=== PATIENT | male | born 1990 | race Two or more races ===

== ENCOUNTER 2025-01-21 20:37 | Emergency (ER) | payer OTHER ==
[~2025-01-21] VITALS: Ht 165.1 cm; Wt 68.0 kg
[2025-01-21] MEDS ORDERED: CRESTOR40 MG (20:44)
[2025-01-21 20:45] VITALS: O2SAT 99
[2025-01-21] MEDS ORDERED: NAPHAZOLINE HCL/PHENIRAMINE 20 DR/ML DROPS OP STA (22:19)
[2025-01-21] MEDS ORDERED: ENALAPRILAT DIHYDRATE 2.5 MG/2 ML VIAL IV STA (22:19)
[2025-01-21] MEDS ORDERED: ENALAPRILAT DIHYDRATE 1.25 MG/ML VIAL IV ONE (22:24)
[2025-01-21 23:32] LABS: BASO % 0.4 % (0.1-1.2); EOS # 0.26 (0.04-0.54); EOS % 3.8 % (0.7-7.0); LYMPH # 2.61 (1.18-3.74); LYMPH % 38.3 % (19.3-53.1); MEAN PLATELET VOLUME 9.70 fl (9.4-12.4); MONO # 0.64 (0.24-0.82); MONO % 9.4 % (4.7-12.5); NEUT # 3.24 (1.56-6.13); NEUT % 47.7 % (34.0-71.1); RED CELL DISTRIBUTION WIDTH 11.5 % (11.6-14.4)
[2025-01-21] MEDS ORDERED: CLONIDINE HCL 0.1 MG TABLET PO STA (23:46)
[2025-01-21 23:59] LABS: ALT/SGPT 79.0 U/L (12-78); AST/SGOT 44.0 U/L (15-37); BILIRUBIN TOTAL 0.67 mg/dL (0.3-1.2); BUN CREA RATIO 13.0 (7.0-25.0); CREATININE SERUM 0.93 mg/dL (0.70-1.30); GFR 93.01; GLOBULINA 3.9 G/DL (2.4-3.5); GLUCOSE FASTING 95.0 mg/dL (65-100); OSMOLALITY SERUM 286.0 MOSM/KG (275-295)
[2025-01-22] MEDS ORDERED: KETOROLAC TROMETHAMINE 10 MG TABLET PO ONE ×2 (01:09→01:11)
[2025-01-22] MEDS ORDERED: KETOROLAC TROMETHAMINE 10 MG TABLET PO STA (01:12)
[2025-01-22] MEDS ORDERED: NIFEDIPINE 10 MG CAPSULE PO ONE (02:19)
[2025-01-22] MEDS ORDERED: NIFEDIPINE 10 MG CAPSULE PO STA (02:22)
[2025-01-22] MEDS ORDERED: COZAAR50 MG PO (03:23)
[2025-01-22 04:39] VITALS: BP 140/60
== END 2025-01-22 04:41 ==
LOC: ER 21:54
PROVIDERS: General Practice
DX: R51.9 Headache, unspecified (principal); I10 Essential (primary) hypertension